=== PATIENT | female | born 1935 | race American Indian/Alaskan Native ===

== ENCOUNTER 2018-02-26 11:16 | Observation (INO) | payer MEDICARE ==
[2018-02-26 12:05] VITALS: BMI 24.2
--- NOTE | 2018-02-26 12:23 | ED PDOC ---
Arrival/HPI - General Time Seen by Provider: 02/26/18 11:54 Historian: Patient - History of Present Illness Narrative History of Present Illness (Text): 02/26/18 12:06 82 year old female, with past medical history of diabetes, presents to the Emergency department from Dr. Peralta's office accompanied by daughter for evaluation of recurrent episodes of hypoglycemia today. Patient was reportedly at Dr. Peralta's office for her routine check-up and was informed of a blood sugar level of 62 mg/dL. Patient was subsequently referred to the Emergency department for medical evaluation. Patient currently denies any somatic complaints. Patient denies any fevers, chills, headache, dizziness, chest pain, shortness of breath, cough, abdominal pain, nausea, vomiting, diarrhea, back pain, neck pain, or any other complaints. PMD: Dr. Peralta Time/Duration: Prior to Arrival Symptom Onset: Gradual Symptom Course: Unchanged Activities at Onset: Light Context: Other (PMD's office) Past Medical History - Provider Review Nursing Documentation Reviewed: Yes - Cardiac Hx Hypertension: Yes - Endocrine/Metabolic Hx Endocrine Disorders: Yes Hx Diabetes Mellitus Type 2: Yes - Psychiatric Hx Substance Use: No - Surgical History Hx Coronary Stent: Yes - Anesthesia Hx Anesthesia: Yes Hx Anesthesia Reactions: No Hx Malignant Hyperthermia: No - Suicidal Assessment Feels Threatened In Home Enviroment: No Family/Social History - Physician Review Nursing Documentation Reviewed: Yes Family/Social History: Unknown Family HX Smoking Status: Never Smoked Hx Alcohol Use: No Hx Substance Use: No Allergies/Home Meds Allergies/Adverse Reactions: Allergies No Known Allergies Allergy (Verified 09/21/17 16:50) Home Medications: Home Meds Medication Instructions Recorded Confirmed Multivitamin [Multivitamins] 1 each PO DAILY 09/10/17 09/21/17 SITagliptin [Januvia] 100 mg PO DAILY 09/10/17 09/21/17 Olmesartan/Hydrochlorothiazide 1 tab PO 10/15/17 [Benicar Hct 25 mg-40 mg] Review of Systems - Physician Review All systems were reviewed & negative as marked: Yes - Review of Systems Respiratory: absent: SOB Cardiovascular: absent: Chest Pain Endocrine: Other (hypoglycemia) Physical Exam - Physical Exam Narrative Physical Exam (Text): 02/26/18 12:16 Constitutional: No acute distress. Head: Normocephalic. Atraumatic. Eyes: PERRL. ENT: Moist mucous membranes. Neck: Supple. Cardiovascular: Regular rate. Chest: No tenderness. Respiratory: Clear to auscultation bilaterally. GI: Soft. Nontender. Nondistended. Back: No CVA tenderness. Musculoskeletal: No tenderness or swelling of extremities. Skin: No rash. Neurologic: Alert, no focal deficit. Vital Signs Reviewed: Yes Vital Signs Temp Pulse Resp BP Pulse Ox 02/26/18 12:04 98.7 F 81 18 162/81 H 100 Temperature: Afebrile Blood Pressure: Hypertensive Pulse: Regular Respiratory Rate: Normal Appearance: Positive for: Well-Appearing, Non-Toxic, Comfortable Pain Distress: None Mental Status: Positive for: Alert and Oriented X 3 Finger Stick Blood Glucose: 80 Medical Decision Making ED Course and Treatment: 02/26/18 12:10 Impression: 82 year old female presents to the Emergency department for evaluation of hypoglycemia. Plan: -- Reassess and disposition Prior Visits: Notes and results from previous visits were reviewed. Progress Notes: EKG Sinus rhythm, 77 bpm, no ST elevations. CXR no acute disease. Dr. Berg accepts patient to his service. - RAD Interpretation Radiology Orders: 02/26/18 12:06 CHEST PORTABLE [RAD] Stat - Scribe Statement The provider has reviewed the documentation as recorded by the Scribe Gautam Morgan. All medical record entries made by the Scribe were at my direction and personally dictated by me. I have reviewed the chart and agree that the record accurately reflects my personal performance of the history, physical exam, medical decision making, and the department course for this patient. I have also personally directed, reviewed, and agree with the discharge instructions and disposition. Disposition/Present on Arrival - Present on Arrival Any Indicators Present on Arrival: No - Disposition Have Diagnosis and Disposition been Completed?: Yes Diagnosis: Hypoglycemia, Acute renal insufficiency, Hypokalemia Disposition: HOSPITALIZED Disposition Time: 13:27 Patient Plan: Admission, Telemetry Condition: FAIR
[2018-02-26 12:49] LABS: BASO # 0.01 K/mm3 (0.0-2.0); BASO % 0.2 % (0.0-3.0); EOS # 0.1 (0.0-0.7); EOS % 1.1 % (1.5-5.0); GRAN # 4.64 (1.4-6.5); GRAN % 70.6 % (50.0-68.0); HEMOGLOBIN 12.6 g/dL (12.0-16.0); LYMPH # 1.4 (1.2-3.4); LYMPH % 20.6 % (22.0-35.0); MEAN CELL VOLUME 89.6 fl (80.0-105.0); MEAN CORPUSCULAR HEMOGLOBIN 29.9 pg (25.0-35.0); MEAN CORPUSCULAR HGB CONC 33.3 g/dl (31.0-37.0); MEAN PLATELET VOLUME 11.3 fl (7.0-11.0); MONO # 0.5 (0.1-0.6); MONO % 7.5 % (1.0-6.0); RBC 4.22 10^6/uL (3.5-6.1); RED CELL DISTRIBUTION WIDTH 14.8 % (11.5-14.5); WHITE BLOOD COUNT 6.6 10^3/uL (4.5-11.0)
[2018-02-26 12:55] LABS: ALB/GLOB RATIO 1.2 (1.1-1.8); ALBUMIN 4.4 g/dL (3.0-4.8); CALCIUM 9.7 mg/dL (8.4-10.5)
--- NOTE | 2018-02-26 14:00 | RAD ---
Date of service: 02/26/2018 HISTORY: hypoglycemia COMPARISON: No prior. FINDINGS: LUNGS: No active pulmonary disease. PLEURA: No significant pleural effusion identified, no pneumothorax apparent. CARDIOVASCULAR: Aortic calcification Normal cardiac size. No pulmonary vascular congestion. OSSEOUS STRUCTURES: No significant abnormalities. VISUALIZED UPPER ABDOMEN: Normal. OTHER FINDINGS: None. IMPRESSION: No active disease.
[2018-02-26] MEDS ORDERED: Dextrose 50% SYRINGE Inj (50 ml) IV PRN (14:22)
--- NOTE | 2018-02-26 14:36 | CP.PCM.HP ---
<Dwayne Shannon - Last Filed: 02/26/18 15:12> History of Present Illness - History of Present Illness History of Present Illness: Dwayne Shannon PGY2 IM H&P Note for Dr. Berg cc: sent from PMD office for hypoglycemia Ms. Zavala is an 82 year old female with a PMH of DM2, HTN and medication non-compliance who presents to the ED with an episode of hypoglycemia that was noted at an appointment at her PMD's office. The patient was visiting her PMD because she hasn't been feeling well lately, and according to the granddaughter who is bedside, her FS was 68 and she has been falling a lot. In ED, her FS was 80, and she has a healthy appetite. The patient states that she takes her "blood pressure, sugar and insulin medications once daily" after she eats breakfast and measures her blood sugar once daily at night. The patient has also had a decreased appetite lately. The granddaughter who is present at bedside, states that the patient is alone at home in the mornings and the family is unsure of what medications she takes, but that she has been falling more lately. The patient denies any chest pain, shortness of breath, dysuria, urinary frequency, headaches, changes in vision. She does complain of generalized weakness and occasional tingling in her legs. 12-pt ROS was reviewed and is otherwise unremarkable. PMD: Dr. Rdaha Peralta PMH: as above PSH: coronary stent, abdominal surgery (unsure what) Meds: Lipitor 20mg daily, Januvia 100 daily, Benicar 40/25 daily, novolog insulin 25 u tid (prescribed by Dr. Peralta 11/25/17) Allergies: NKDA SHx: lives with family; denies tobacco, EtOH or drug use FHx: unremarkable Present on Admission - Present on Admission Any Indicators Present on Admission: No Review of Systems - Review of Systems All systems: reviewed and no additional remarkable complaints except (as per HPI) Past Patient History - Past Medical History & Family History Past Medical History?: Yes Past Family History: Reviewed and not pertinent - Past Social History Smoking Status: Never Smoked Alcohol: None Drugs: Denies Home Situation {Lives}: With Family - CARDIAC Hx Cardiac Disorders: Yes (CAD s/p stents) Hx Hypercholesterolemia: Yes Hx Hypertension: Yes - PULMONARY Hx Respiratory Disorders: No - NEUROLOGICAL Hx Neurological Disorder: No - HEENT Hx HEENT Problems: No - RENAL Hx Chronic Kidney Disease: No - ENDOCRINE/METABOLIC Hx Endocrine Disorders: Yes Hx Diabetes Mellitus Type 2: Yes - HEMATOLOGICAL/ONCOLOGICAL Hx Blood Disorders: No - INTEGUMENTARY Hx Dermatological Problems: No - MUSCULOSKELETAL/RHEUMATOLOGICAL Hx Musculoskeletal Disorders: Yes Hx Falls: Yes - GASTROINTESTINAL Hx Gastrointestinal Disorders: No - GENITOURINARY/GYNECOLOGICAL Hx Genitourinary Disorders: No - PSYCHIATRIC Hx Psychophysiologic Disorder: No Hx Substance Use: No - SURGICAL HISTORY Hx Surgeries: Yes Hx Coronary Stent: Yes - ANESTHESIA Hx Anesthesia: Yes Hx Anesthesia Reactions: No Hx Malignant Hyperthermia: No Meds Allergies/Adverse Reactions: Allergies Allergy/AdvReac Type Severity Reaction Status Date / Time No Known Allergies Allergy Verified 09/21/17 16:50 Physical Exam - Constitutional Appears: Well, Non-toxic, No Acute Distress - Head Exam Head Exam: ATRAUMATIC, NORMAL INSPECTION, NORMOCEPHALIC - Eye Exam Eye Exam: EOMI, Normal appearance, PERRL Pupil Exam: NORMAL ACCOMODATION - ENT Exam ENT Exam: Mucous Membranes Moist, Normal Exam, Normal Oropharynx - Neck Exam Neck exam: Positive for: Full Rom, Normal Inspection. Negative for: Tenderness, Thyromegaly - Respiratory Exam Respiratory Exam: NORMAL BREATHING PATTERN. absent: Rales, Rhonchi, Wheezes, Respiratory Distress, Stridor - Cardiovascular Exam Cardiovascular Exam: RRR, +S1, +S2, Systolic Murmur - GI/Abdominal Exam GI & Abdominal Exam: Normal Bowel Sounds, Soft. absent: Distended, Guarding, Tenderness - Extremities Exam Extremities exam: Positive for: full ROM, normal inspection, pedal pulses present. Negative for: joint swelling, pedal edema - Back Exam Back exam: NORMAL INSPECTION. absent: CVA tenderness (L), CVA tenderness (R), tenderness - Neurological Exam Neurological exam: Alert, CN II-XII Intact, Normal Gait, Oriented x3, Reflexes Normal - Psychiatric Exam Psychiatric exam: Normal Affect, Normal Mood - Skin Skin Exam: Normal Color, Warm Results - Vital Signs Recent Vital Signs: Last Vital Signs Temp 98.7 F 02/26/18 12:04 Pulse 81 02/26/18 12:04 Resp 18 02/26/18 12:04 BP 162/81 H 02/26/18 12:04 Pulse Ox 100 02/26/18 12:04 - Labs Result Diagrams: 02/26/18 12:30 02/26/18 12:30 Labs: Laboratory Results - last 24 hr 02/26/18 02/26/18 12:30 12:30 WBC 6.6 RBC 4.22 Hgb 12.6 Hct 37.8 MCV 89.6 MCH 29.9 MCHC 33.3 RDW 14.8 H Plt Count 253 MPV 11.3 H Gran % 70.6 H Lymph % (Auto) 20.6 L [place] % (Auto) 7.5 H Eos % (Auto) 1.1 L Baso % (Auto) 0.2 Gran # 4.64 Lymph # (Auto) 1.4 [place] # (Auto) 0.5 Eos # (Auto) 0.1 Baso # (Auto) 0.01 Sodium 143 Potassium 3.1 L Chloride 101 Carbon Dioxide 32 Anion Gap 13 BUN 28 H Creatinine 1.5 H Est GFR ( Amer) 40 Est GFR (Non-Af Amer) 33 Random Glucose 57 L Calcium 9.7 Total Bilirubin 0.3 AST 31 ALT 17 Alkaline Phosphatase 83 Total Protein 8.2 Albumin 4.4 Globulin 3.8 Albumin/Globulin Ratio 1.2 Assessment & Plan - Assessment and Plan (Free Text) Assessment: 82 year old female with a PMH of DM2, HTN and medication non- compliance who presents to the ED with an episode of hypoglycemia that was noted at an appointment at her PMD's office. The hypoglycemia is likely due to erroneous use of insulin, in combination with decreased intake. EKG shows sinus rhythm w/ PAC's, and LVH/LAD indicating poor BP control. Plan: - admit patient for observation on remote tele - will start Januvia and low dose insulin sliding scale - fingersticks ACHS - endocrinology consulted for optimization of meds and to avoid hypoglycemic episodes - diabetic education referral for teaching about insulin use - A1C, TSH, lipid panel ordered - UA and ANA/UCr ordered to evaluate for POONAM which could be indicate infectious cause as possible cause of hypoglycemia - hypoglycemia protocol w/ D50 inj and D5W - restart BP meds - Carb consistent diet - further recs per Dr. Berg Case was reviewed and discussed with attending, Dr. Otis Shannon PGY2 <Zoran Berg S - Last Filed: 02/27/18 15:56> Results - Vital Signs Recent Vital Signs: Last Vital Signs Temp 97.9 F 02/27/18 08:29 Pulse 69 02/27/18 08:29 Resp 20 02/27/18 08:29 BP 179/85 H 02/27/18 08:29 Pulse Ox 99 02/27/18 08:29 - Labs Result Diagrams: 02/26/18 12:30 02/27/18 06:00 Labs: Laboratory Results - last 24 hr 02/26/18 02/26/18 02/26/18 12:30 12:30 12:30 Sodium Potassium Chloride Carbon Dioxide Anion Gap BUN Creatinine Est GFR ( Amer) Est GFR (Non-Af Amer) POC Glucose (mg/dL) Random Glucose Hemoglobin A1c 6.5 Calcium Phosphorus Magnesium Total Bilirubin AST ALT Alkaline Phosphatase Total Protein Albumin Globulin Albumin/Globulin Ratio Triglycerides 112 Cholesterol 229 H LDL Cholesterol Direct 115 HDL Cholesterol 76 H TSH 3rd Generation 0.76 Urine Color Urine Appearance Urine pH Ur Specific [place] Urine Protein Urine Glucose (UA) Urine Ketones Urine Blood Urine Nitrate Urine Bilirubin Urine Urobilinogen Ur Leukocyte Esterase Urine RBC Urine WBC Ur Epithelial Cells Urine Bacteria Ur Random Creatinine Ur Random Sodium 02/26/18 02/26/18 02/26/18 17:51 21:13 22:25 Sodium Potassium Chloride Carbon Dioxide Anion Gap BUN Creatinine Est GFR ( Amer) Est GFR (Non-Af Amer) POC Glucose (mg/dL) 139 H 181 H Random Glucose Hemoglobin A1c Calcium Phosphorus Magnesium Total Bilirubin AST ALT Alkaline Phosphatase Total Protein Albumin Globulin Albumin/Globulin Ratio Triglycerides Cholesterol LDL Cholesterol Direct HDL Cholesterol TSH 3rd Generation Urine Color Yellow Urine Appearance Clear Urine pH 6.5 Ur Specific [place] 1.010 Urine Protein Negative Urine Glucose (UA) 100 H Urine Ketones Negative Urine Blood Negative Urine Nitrate Negative Urine Bilirubin Negative Urine Urobilinogen 0.2 Ur Leukocyte Esterase Moderate H Urine RBC Negative Urine WBC 0 - 2 Ur Epithelial Cells 0 - 2 Urine Bacteria Neg Ur Random Creatinine Ur Random Sodium 02/26/18 02/27/18 02/27/18 22:25 06:00 07:35 Sodium 139 Potassium 3.5 L Chloride 101 Carbon Dioxide 30 Anion Gap 12 BUN 24 H Creatinine 1.2 Est GFR ( Amer) 52 Est GFR (Non-Af Amer) 43 POC Glucose (mg/dL) 159 H Random Glucose 186 H Hemoglobin A1c Calcium 9.5 Phosphorus 3.4 Magnesium 1.7 Total Bilirubin 0.3 AST 27 ALT 25 Alkaline Phosphatase 79 Total Protein 7.3 Albumin 3.9 Globulin 3.4 Albumin/Globulin Ratio 1.2 Triglycerides Cholesterol LDL Cholesterol Direct HDL Cholesterol TSH 3rd Generation Urine Color Urine Appearance Urine pH Ur Specific [place] Urine Protein Urine Glucose (UA) Urine Ketones Urine Blood Urine Nitrate Urine Bilirubin Urine Urobilinogen Ur Leukocyte Esterase Urine RBC Urine WBC Ur Epithelial Cells Urine Bacteria Ur Random Creatinine 80 Ur Random Sodium 146 02/27/18 11:26 Sodium Potassium Chloride Carbon Dioxide Anion Gap BUN Creatinine Est GFR ( Amer) Est GFR (Non-Af Amer) POC Glucose (mg/dL) 171 H Random Glucose Hemoglobin A1c Calcium Phosphorus Magnesium Total Bilirubin AST ALT Alkaline Phosphatase Total Protein Albumin Globulin Albumin/Globulin Ratio Triglycerides Cholesterol LDL Cholesterol Direct HDL Cholesterol TSH 3rd Generation Urine Color Urine Appearance Urine pH Ur Specific [place] Urine Protein Urine Glucose (UA) Urine Ketones Urine Blood Urine Nitrate Urine Bilirubin Urine Urobilinogen Ur Leukocyte Esterase Urine RBC Urine WBC Ur Epithelial Cells Urine Bacteria Ur Random Creatinine Ur Random Sodium Assessment & Plan - Assessment and Plan (Free Text) Plan: Pt seen and examined. I have reviewed the note of the medical office administrator and agree with it. I have discussed the assessment and plan with the resident. I have reviewed the patient's labs and medications. Pt with hypoglycemia at home. Endocrine will be seeing the pt to evaluate. She should have her Insulin decreased. She does not eat regularly and was advised to eat on time. Will place the pt on an ISS and check her FS.
[2018-02-26] MEDS ORDERED: HYDROCHLOROTHIAZIDE PO SCH (14:45)
[2018-02-26] MEDS ORDERED: [UNRECOGNIZED DRUG - OTHER] PO SCH (14:45)
[2018-02-26] MEDS ORDERED: OLMESARTAN PO SCH (14:45)
[2018-02-26 16:19] LABS: HDL CHOLESTEROL 76 mg/dL (29-60)
[2018-02-26 16:30] LABS: LDL CHOLESTEROL 115 mg/dL (0-129)
--- NOTE | 2018-02-26 17:08 | CARD ---
APPROVED REPORT Date of service: 02/26/2018 EKG Measurement Heart [id number] <Conclusion> Sinus rhythm with premature atrial complexes Possible Left atrial enlargement Left axis deviation Left ventricular hypertrophy Anterior infarct, age undetermined T wave abnormality, consider lateral ischemia Abnormal ECG
[2018-02-26] MEDS: Insulin Lispro (humaLOG) LOW Coverage SC SCH ×2 (18:01→21:58)
[2018-02-26] MEDS ORDERED: Potassium Chloride 20 mEq ER Tab PO STA (18:14)
[2018-02-26] MEDS ORDERED: Pneumococcal 23-Valent Vaccine IM ONE (21:21)
[2018-02-26] MEDS ORDERED: Influenza Vaccine 60 mcg/0.5 mL SYR (4YR UP) IM ONE (21:21)
[2018-02-26 22:33] LABS: PH,URINE 6.5 (4.7-8.0); URINE BILIRUBIN NEGATIVE (NEGATIVE); URINE BLOOD NEGATIVE (NEGATIVE); URINE GLUCOSE (UA) 100 mg/dL (NEGATIVE); URINE LEUKOCYTE ESTERASE MODERATE Leu/uL (NEGATIVE); URINE PROTEIN NEGATIVE mg/dL (<30 mg/dL); URINE UROBILINOGEN 0.2 E.U./dL (<1 E.U./dL)
[2018-02-26 22:34] LABS: URINE APPEARANCE CLEAR (CLEAR); URINE COLOR YELLOW (YELLOW)
[2018-02-26 22:45] LABS: URINE BACTERIA NEG (NEG); URINE EPITHELIAL CELLS 0 - 2 /hpf (0-5); URINE RBC NEGATIVE /hpf (0-2); URINE WBC 0 - 2 /hpf (0-6)
[2018-02-26 22:52] LABS: CREATININE,RANDOM URINE 80 mg/dL
[2018-02-26 23:27] VITALS: RESP 20
--- NOTE | 2018-02-27 01:54 | CON ---
DATE: 02/26/2018 ENDOCRINOLOGY CONSULTATION LOCATION: In room 371. HISTORY OF PRESENT ILLNESS: This is an 82-year-old female with known history of type 2 insulin-requiring diabetes presenting here from her primary physician's office with symptomatic hypoglycemia and associated generalized body weakness with frequent near syncopal and syncopal episodes over the last few weeks prior to admission. Her glucose levels have been in the low side of normal, especially in the last week or so prior to admission, and the glucose value was actually 68 at the doctor's office as noted. PAST MEDICAL HISTORY: As mentioned above, history of type 2 insulin-requiring diabetes, currently being followed by her primary doctor, Dr. Joe and was prescribed NovoLog insulin given as 25 units t.i.d. before meals with Januvia at 100 mg once daily, history of hypertension and dyslipidemia, history of coronary artery disease with previous coronary stent placement, history of diabetic retinopathy, polyneuropathy and nephropathy with underlying chronic kidney disease, history of peripheral arterial disease and vasculopathy, history of diffuse osteoarthritis with occasional low back pain. She also had a previous abdominal surgery, the exact nature is not known at this time. FAMILY HISTORY: Positive for diabetes and hypertension. SOCIAL HISTORY: The patient has a supportive family. No known substance use. REVIEW OF SYSTEMS: As mentioned above. Admits to generalized body weakness with easy fatigability and tiredness and suboptimal energy level. Also admits to occasional visual blurring with bifrontal headaches and recent bouts of progressively worsening dizziness and lightheadedness with near syncopal and syncopal episodes thereof. No chest pains or palpitations. Also admits to occasional shortness of breath especially on exertion. Her oral intake has been variable and suboptimal with dyspepsia and habitual constipation. No recent alterations of bowel and urinary patterns. PHYSICAL EXAMINATION: GENERAL: This is an average built female in no apparent distress. VITAL SIGNS: Blood pressure of 140/80, pulse of 100 beats per minute and regular, temperature 98, respirations 20, height is 5 feet 4 inches, and weight is 141 pounds. HEENT: Head; normocephalic. Eyes; anicteric with pink conjunctivae. Funduscopy not possible at this time. Ears, nose, and throat otherwise normal. NECK: Supple. Thyroid gland is normal in size. No carotid bruits or any cervical adenopathy. CARDIOPULMONARY: Some adynamic precordium. S1 and S2 is rapid and regular. LUNGS: Clear to auscultation. ABDOMEN: Flat and soft with positive bowel sounds. EXTREMITIES: No peripheral edema. Pulses are +2 bilaterally. LABORATORY DATA: The initial chemistry showed a BUN of 28, sodium 143, potassium 3.1, chloride 101, CO2 of 32, glucose 57, and creatinine 1.5. Her hemoglobin A1c is 6.5%. Her TSH is 0.76 and subsequent glucose levels are ranging from 139 to 181 mg/dL. ASSESSMENT: This is an 82-year-old female with uncontrolled and decompensated type 2 insulin-requiring diabetes presenting here with symptomatic hypoglycemia and associated neuroglycopenic and hyperadrenergic manifestations with significant bouts of near syncopal and syncopal episodes, most likely metabolic in origin with ongoing administration of a high-dose insulin therapy with variable and suboptimal oral intake in the last few weeks prior to admission. She also has diabetic microvascular complications of retinopathy, polyneuropathy, and nephropathy with underlying chronic kidney disease and diabetic macrovascular complications of coronary artery disease with coronary stent placements and underlying peripheral arterial disease and vasculopathy. PLAN OF MANAGEMENT: We will prudently discontinue her Januvia medications at this time and modify her current coverage scale to a very, very low dose coverage of Humalog for glucose levels only above 300 and detailed orders have been given. We will observe her glycemic fluctuations and determine the need to restart her on either low-dose basal and/or a basal bolus insulin regimen as indicated versus also low-dose oral hypoglycemic therapy, which would be quite safer for the patient especially with recent variable and suboptimal oral intake. We will obtain serial chemistries and supplement accordingly as needed. We will also continue the D50 bolus injections as indicated for symptomatic hypoglycemia. We will follow. Elizabeth Andrade MD
[2018-02-27 06:37] LABS: ALB/GLOB RATIO 1.2 (1.1-1.8); ALBUMIN 3.9 g/dL (3.0-4.8); CALCIUM 9.5 mg/dL (8.4-10.5)
[2018-02-27] MEDS ORDERED: Potassium Chloride 20 mEq ER Tab PO ONE (06:43)
[2018-02-27] MEDS: Insulin Lispro 1 UNITS/0.01 ML SC SCH ×2 (07:44→11:37)
[2018-02-27 08:29] VITALS: BP 179/85; PULSE 69; TEMP 97.9; O2SAT 99
[2018-02-27] MEDS ORDERED: Multivitamin Therapeutic Tab PO SCH (10:00)
--- NOTE | 2018-02-27 13:05 | CP.PCM.DIS ---
<Dwayne Shannon - Last Filed: 02/27/18 18:03> Provider - Provider Date of Admission: 02/26/18 13:34 Attending physician: Zoran Berg MD Time Spent in preparation of Discharge (in minutes): 40 Diagnosis - Discharge Diagnosis (1) Hypoglycemia Status: Acute Hospital Course - Lab Results Lab Results: Most Recent Lab Values WBC 6.6 10^3/uL (4.5-11.0) 02/26/18 12:30 RBC 4.22 10^6/uL (3.5-6.1) 02/26/18 12:30 Hgb 12.6 g/dL (12.0-16.0) 02/26/18 12:30 Hct 37.8 % (36.0-48.0) 02/26/18 12:30 MCV 89.6 fl (80.0-105.0) 02/26/18 12:30 MCH 29.9 pg (25.0-35.0) 02/26/18 12:30 MCHC 33.3 g/dl (31.0-37.0) 02/26/18 12:30 RDW 14.8 % (11.5-14.5) H 02/26/18 12:30 Plt Count 253 10^3/uL (120.0-450.0) 02/26/18 12:30 MPV 11.3 fl (7.0-11.0) H 02/26/18 12:30 Gran % 70.6 % (50.0-68.0) H 02/26/18 12:30 Lymph % (Auto) 20.6 % (22.0-35.0) L 02/26/18 12:30 [place] % (Auto) 7.5 % (1.0-6.0) H 02/26/18 12:30 Eos % (Auto) 1.1 % (1.5-5.0) L 02/26/18 12:30 Baso % (Auto) 0.2 % (0.0-3.0) 02/26/18 12:30 Gran # 4.64 (1.4-6.5) 02/26/18 12:30 Lymph # (Auto) 1.4 (1.2-3.4) 02/26/18 12:30 [place] # (Auto) 0.5 (0.1-0.6) 02/26/18 12:30 Eos # (Auto) 0.1 (0.0-0.7) 02/26/18 12:30 Baso # (Auto) 0.01 K/mm3 (0.0-2.0) 02/26/18 12:30 Sodium 139 mmol/L (132-148) 02/27/18 06:00 Potassium 3.5 mmol/L (3.6-5.0) L 02/27/18 06:00 Chloride 101 mmol/L (98-107) 02/27/18 06:00 Carbon Dioxide 30 mmol/L (21-33) 02/27/18 06:00 Anion Gap 12 (10-20) 02/27/18 06:00 BUN 24 mg/dL (7-21) H 02/27/18 06:00 Creatinine 1.2 mg/dl (0.7-1.2) 02/27/18 06:00 Est GFR ( Amer) 52 02/27/18 06:00 Est GFR (Non-Af Amer) 43 02/27/18 06:00 POC Glucose (mg/dL) 171 mg/dL (65-110) H 02/27/18 11:26 Random Glucose 186 mg/dL (70-110) H 02/27/18 06:00 Hemoglobin A1c 6.5 % (4.2-6.5) 02/26/18 12:30 Calcium 9.5 mg/dL (8.4-10.5) 02/27/18 06:00 Phosphorus 3.4 mg/dL (2.5-4.5) 02/27/18 06:00 Magnesium 1.7 mg/dL (1.7-2.2) 02/27/18 06:00 Total Bilirubin 0.3 mg/dL (0.2-1.3) 02/27/18 06:00 AST 27 U/L (14-36) 02/27/18 06:00 ALT 25 U/L (7-56) 02/27/18 06:00 Alkaline Phosphatase 79 U/L (38-126) 02/27/18 06:00 Total Protein 7.3 g/dL (5.8-8.3) 02/27/18 06:00 Albumin 3.9 g/dL (3.0-4.8) 02/27/18 06:00 Globulin 3.4 gm/dL 02/27/18 06:00 Albumin/Globulin Ratio 1.2 (1.1-1.8) 02/27/18 06:00 Triglycerides 112 mg/dL (35-160) 02/26/18 12:30 Cholesterol 229 mg/dL (130-200) H 02/26/18 12:30 LDL Cholesterol Direct 115 mg/dL (0-129) 02/26/18 12:30 HDL Cholesterol 76 mg/dL (29-60) H 02/26/18 12:30 TSH 3rd Generation 0.76 mIU/mL (0.46-4.68) 02/26/18 12:30 Urine Color Yellow (YELLOW) 02/26/18 22:25 Urine Appearance Clear (CLEAR) 02/26/18 22: Urine pH 6.5 (4.7-8.0) 02/26/18 22:25 Ur Specific [place] 1.010 (1.005-1.035) 02/26/18 22:25 Urine Protein Negative mg/dL (<30 mg/dL) 02/26/18 22:25 Urine Glucose (UA) 100 mg/dL (NEGATIVE) H 02/26/18 22:25 Urine Ketones Negative mg/dL (NEGATIVE) 02/26/18 22: Urine Blood Negative (NEGATIVE) 02/26/18 22:25 Urine Nitrate Negative (NEGATIVE) 02/26/18 22:25 Urine Bilirubin Negative (NEGATIVE) 02/26/18 22:25 Urine Urobilinogen 0.2 E.U./dL (<1 E.U./dL) 02/26/18 22:25 Ur Leukocyte Esterase Moderate [place]/uL (NEGATIVE) H 02/26/18 22:25 Urine RBC Negative /hpf (0-2) 02/26/18 22:25 Urine WBC 0 - 2 /hpf (0-6) 02/26/18 22:25 Ur Epithelial Cells 0 - 2 /hpf (0-5) 02/26/18 22:25 Urine Bacteria Neg (NEG) 02/26/18 22:25 Ur Random Creatinine 80 mg/dL 02/26/18 22:25 Ur Random Sodium 146 meq/L 02/26/18 22:25 - Hospital Course Hospital Course: 82 year old female with a PMH of DM2, HTN and medication non- compliance who presents to the ED with an episode of hypoglycemia (FS 68)that was noted at an appointment at her PMD's office, as well as multiple episodes of hypotension and pre-syncopal episodes noted by family members who are very concerned for the patient. The patient stated that she takes her "blood p ressure, sugar and insulin medications once daily" after she eats breakfast and measures her blood sugar once daily at night. The patient has also had a decreased appetite lately. The patient was admitted for observation and endocrinology was consulted. 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 Hypoglycemic episodes were a result of over-medication and decreased PO intake by the patient. She was instructed by Dr. Andrade (endocrinology) to stop taking insulin regularly based on her FS readings in hospital (150-190), and instead only take the Januvia daily, and to measure her blood sugar before meals and only give insulin if FS > 300. Otherwise, the patient should avoid insulin to avoid hypoglycemic episodes. UA, A1C, lipid panel and TSH Were also ordered to evaluate for other causes of hypoglycemia and were unremarkable. I contacted Milvia (granddaughter) and explained the instructions in full detail and she understood everything and was able to explain it back to me. The patient will be following-up with PMD Within 1 week. Also encouraged to follow-up with endocrinology. On the morning of discharge, the patient was able to explain that she had been overmedicating and that she will be measuring her fingersticks more often. She had no other complaints. Discharge Exam - Head Exam Head Exam: ATRAUMATIC, NORMAL INSPECTION, NORMOCEPHALIC - Eye Exam Eye Exam: EOMI, Normal appearance, PERRL - ENT Exam ENT Exam: Mucous Membranes Moist, Normal Oropharynx - Neck Exam Neck exam: Full Rom, Normal Inspection - Respiratory Exam Respiratory Exam: NORMAL BREATHING PATTERN. absent: Rales, Rhonchi, Wheezes, Respiratory Distress - Cardiovascular Exam Cardiovascular Exam: RRR, +S1, +S2 - GI/Abdominal Exam GI & Abdominal Exam: Normal Bowel Sounds, Soft. absent: Distended, Tenderness - Extremities Exam Extremities exam: full ROM, normal capillary refill, normal inspection, pedal pulses present - Back Exam Back exam: FULL ROM, NORMAL INSPECTION - Neurological Exam Neurological exam: Alert, CN II-XII Intact, Normal Gait, Oriented x3 - Psychiatric Exam Psychiatric exam: Normal Affect, Normal Mood - Skin Skin Exam: Normal Color, Warm Discharge Plan - Follow Up Plan Condition: GOOD Disposition: HOME/ ROUTINE Instructions: Sitagliptin, Low Blood Sugar, Adult (DC), Low Blood Sugar in People With Diabetes, Insulin Aspart Additional Instructions: - please continue Januvia 100mg daily - please check your fingersticks THREE TIMES DAILY BEFORE MEALS: -- If your blood sugar > 300: take 5u novolog -- If your blood sugar < 300: DO NOT TAKE ANY INSULIN - please continue your Benicar and Lipitor as before - please follow-up with Dr. Berg or PMD within 1 week - please follow-up with Dr. Andrade (endocrinology) within 1 week ANY NEW ONSET OF SYMPTOMS SUCH SHORTNESS OF BREATH, NAUSEA, VOMITING, DIZZINESS, REPORT BACK TO THE ER IMMEDIATELY. Referrals: Alexandre Peralta MD [Family Provider] - Elizabeth Andrade MD [Medical Doctor] - Zoran Berg MD [Staff Provider] - <Zoran Berg - Last Filed: 02/27/18 18:38> Provider - Provider Date of Admission: 02/26/18 13:34 Attending physician: Zoran Berg MD Hospital Course - Lab Results Lab Results: Most Recent Lab Values WBC 6.6 10^3/uL (4.5-11.0) 02/26/18 12:30 RBC 4.22 10^6/uL (3.5-6.1) 02/26/18 12:30 Hgb 12.6 g/dL (12.0-16.0) 02/26/18 12:30 Hct 37.8 % (36.0-48.0) 02/26/18 12:30 MCV 89.6 fl (80.0-105.0) 02/26/18 12:30 MCH 29.9 pg (25.0-35.0) 02/26/18 12:30 MCHC 33.3 g/dl (31.0-37.0) 02/26/18 12:30 RDW 14.8 % (11.5-14.5) H 02/26/18 12:30 Plt Count 253 10^3/uL (120.0-450.0) 02/26/18 12:30 MPV 11.3 fl (7.0-11.0) H 02/26/18 12:30 Gran % 70.6 % (50.0-68.0) H 02/26/18 12:30 Lymph % (Auto) 20.6 % (22.0-35.0) L 02/26/18 12:30 [place] % (Auto) 7.5 % (1.0-6.0) H 02/26/18 12:30 Eos % (Auto) 1.1 % (1.5-5.0) L 02/26/18 12:30 Baso % (Auto) 0.2 % (0.0-3.0) 02/26/18 12:30 Gran # 4.64 (1.4-6.5) 02/26/18 12:30 Lymph # (Auto) 1.4 (1.2-3.4) 02/26/18 12:30 [place] # (Auto) 0.5 (0.1-0.6) 02/26/18 12:30 Eos # (Auto) 0.1 (0.0-0.7) 02/26/18 12:30 Baso # (Auto) 0.01 K/mm3 (0.0-2.0) 02/26/18 12:30 Sodium 139 mmol/L (132-148) 02/27/18 06:00 Potassium 3.5 mmol/L (3.6-5.0) L 02/27/18 06:00 Chloride 101 mmol/L (98-107) 02/27/18 06:00 Carbon Dioxide 30 mmol/L (21-33) 02/27/18 06:00 Anion Gap 12 (10-20) 02/27/18 06:00 BUN 24 mg/dL (7-21) H 02/27/18 06:00 Creatinine 1.2 mg/dl (0.7-1.2) 02/27/18 06:00 Est GFR ( Amer) 52 02/27/18 06:00 Est GFR (Non-Af Amer) 43 02/27/18 06:00 POC Glucose (mg/dL) 171 mg/dL (65-110) H 02/27/18 11:26 Random Glucose 186 mg/dL (70-110) H 02/27/18 06:00 Hemoglobin A1c 6.5 % (4.2-6.5) 02/26/18 12:30 Calcium 9.5 mg/dL (8.4-10.5) 02/27/18 06:00 Phosphorus 3.4 mg/dL (2.5-4.5) 02/27/18 06:00 Magnesium 1.7 mg/dL (1.7-2.2) 02/27/18 06:00 Total Bilirubin 0.3 mg/dL (0.2-1.3) 02/27/18 06:00 AST 27 U/L (14-36) 02/27/18 06:00 ALT 25 U/L (7-56) 02/27/18 06:00 Alkaline Phosphatase 79 U/L (38-126) 02/27/18 06:00 Total Protein 7.3 g/dL (5.8-8.3) 02/27/18 06:00 Albumin 3.9 g/dL (3.0-4.8) 02/27/18 06:00 Globulin 3.4 gm/dL 02/27/18 06:00 Albumin/Globulin Ratio 1.2 (1.1-1.8) 02/27/18 06:00 Triglycerides 112 mg/dL (35-160) 02/26/18 12:30 Cholesterol 229 mg/dL (130-200) H 02/26/18 12:30 LDL Cholesterol Direct 115 mg/dL (0-129) 02/26/18 12:30 HDL Cholesterol 76 mg/dL (29-60) H 02/26/18 12:30 TSH 3rd Generation 0.76 mIU/mL (0.46-4.68) 02/26/18 12:30 Urine Color Yellow (YELLOW) 02/26/18 22:25 Urine Appearance Clear (CLEAR) 02/26/18 22:25 Urine pH 6.5 (4.7-8.0) 02/26/18 22:25 Ur Specific [place] 1.010 (1.005-1.035) 02/26/18 22:25 Urine Protein Negative mg/dL (<30 mg/dL) 02/26/18 22:25 Urine Glucose (UA) 100 mg/dL (NEGATIVE) H 02/26/18 22:25 Urine Ketones Negative mg/dL (NEGATIVE) 02/26/18 22:25 Urine Blood Negative (NEGATIVE) 02/26/18 22:25 Urine Nitrate Negative (NEGATIVE) 02/26/18 22:25 Urine Bilirubin Negative (NEGATIVE) 02/26/18 22:25 Urine Urobilinogen 0.2 E.U./dL (<1 E.U./dL) 02/26/18 22:25 Ur Leukocyte Esterase Moderate [place]/uL (NEGATIVE) H 02/26/18 22:25 Urine RBC Negative /hpf (0-2) 02/26/18 22:25 Urine WBC 0 - 2 /hpf (0-6) 02/26/18 22:25 Ur Epithelial Cells 0 - 2 /hpf (0-5) 02/26/18 22:25 Urine Bacteria Neg (NEG) 02/26/18 22:25 Ur Random Creatinine 80 mg/dL 02/26/18 22:25 Ur Random Sodium 146 meq/L 02/26/18 22:25 - Hospital Course Hospital Course: Pt seen and examined. I have reviewed the note of the medical affairs leader and agree with it. I have discussed the assessment and plan with the resident. I have reviewed the patient's labs and medications. The pt was admitted with hypoglycemia. She was seen by endocrine and the gold buyer. She will not be taking her insulin and will be placed on Januvia. The pt's granddaughter was updated and the pt was discharged home to / with her PMD.
--- NOTE | 2018-02-27 17:57 | PN ---
DATE: 02/27/2018 ENDOCRINOLOGY FOLLOWUP NOTE LOCATION: Room 371. SUBJECTIVE: This is an 82-year-old female with recent uncontrolled type 2 insulin-requiring diabetes presenting here with symptomatic hypoglycemia and associated near syncopal and syncopal episodes, which are most likely related to the extremes of glycemic fluctuations and is now being followed closely for metabolic management. She was being given NovoLog 25 units t.i.d. with meals by her primary physician on the outpatient as noted. Her glucose levels were always on the low side of normal and usually in the 40-60 mg/dL range at home. Her chemistries today showed a BUN of 24, sodium 139, potassium 3.5, chloride 101, CO2 30, glucose 186 and creatinine 1.7. Her glucose levels overnight have ranged from 159-181 and 171 mg/dL. So at this time, we will hold off the resumption of any kind of insulin therapy to prevent symptomatic bouts of hypoglycemia and syncopal or near syncopal episodes thereof. We will resume only the Januvia given as 100 mg once daily in the morning as ordered. The patient has been advised to follow with her primary physician for ongoing diabetic and medical management. We will obtain serial chemistries and supplement accordingly as needed. We will follow. 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 This is related to the over insulin administration on the patient's dose regimen with very poor and variable oral intake as noted thereof. Elizabeth Andrade MD
== END 2018-02-27 14:41 | disposition home or self-care (01) ==
LOC: ED 11:16 → ERH 13:34 → INTOOBSV 13:34 → ERH 16:37 → 3RSO 19:55
PROVIDERS: ADMIT Internal Medicine Nephrology; ATTEND Internal Medicine Nephrology
DX: E11.649 Type 2 diabetes mellitus with hypoglycemia without coma (principal); E87.6 Hypokalemia; I25.10 Atherosclerotic heart disease of native coronary artery without angina pectoris; I12.9 Hypertensive chronic kidney disease with stage 1 through stage 4 chronic kidney disease, or unspecified chronic kidney disease; N18.9 Chronic kidney disease, unspecified; E78.00 Pure hypercholesterolemia, unspecified; E11.65 Type 2 diabetes mellitus with hyperglycemia; E11.21 Type 2 diabetes mellitus with diabetic nephropathy; E11.22 Type 2 diabetes mellitus with diabetic chronic kidney disease; E11.51 Type 2 diabetes mellitus with diabetic peripheral angiopathy without gangrene; E11.319 Type 2 diabetes mellitus with unspecified diabetic retinopathy without macular edema; E11.42 Type 2 diabetes mellitus with diabetic polyneuropathy; E78.5 Hyperlipidemia, unspecified; R55 Syncope and collapse; Z91.14 Patient's other noncompliance with medication regimen; Z79.4 Long term (current) use of insulin; Z95.5 Presence of coronary angioplasty implant and graft
CPT/HCPCS: 36415; 71045; 80053; 80061; 81001; 82570; 82948; 83036; 83735; 84100; 84300; 84443; 85025; 93005; 99282; G0378